=== PATIENT | female | born 1990 | race Caucasian/White ===

== ENCOUNTER → 2018-08-19 | Outpatient (CLI) | payer OTHER ==
[2018-08-19 13:47] VITALS: BMI 44.7
== END | disposition home or self-care (01) ==
LOC: MERGE 08-02 09:20 → MNTWWP 09:20
PROVIDERS: ATTEND Internal Medicine
DX: E66.01 Morbid (severe) obesity due to excess calories (principal); Z68.41 Body mass index [BMI] 40.0-44.9, adult
CPT/HCPCS: 97802

== ENCOUNTER → 2021-07-11 | Outpatient (CLI) | payer OTHER ==
[2021-07-11 13:38] LABS: Glucose 3 Hour, Gest 77 mg/dL
== END | disposition home or self-care (01) ==
LOC: EEVIPCON 08:30 → LABWHC1 09:01
PROVIDERS: ATTEND Obstetrics & Gynecology
DX: O99.810 Abnormal glucose complicating pregnancy (principal); Z3A.00 Weeks of gestation of pregnancy not specified
CPT/HCPCS: 36415; 82951; 82952

== ENCOUNTER 2022-08-17 15:26 | Inpatient (IN) | payer OTHER ==
[2022-08-17 16:07] LABS: Appearance,Urine Cloudy (Clear); Bacteria,Urine Rare /hpf; Bilirubin,Urine Negative (Negative); Blood,Urine Negative (Negative); Color,Urine Light Yellow; Glucose,Urine (UA) Negative (Negative); Hyaline Casts,Urine 1 /lpf (0-2); Ketones,Urine Negative (Negative); Leukocyte Esterase,Urine Negative (Negative); Nitrite,Urine Negative (Negative); PH, Urine 7.5 (5.0-8.0); Protein,Urine Trace (Negative); RBC,Urine <1 /hpf (0-5); Specific Gravity,Urine 1.011 (1.001-1.035); Squamous Epithelial Cell,Urine 20 /hpf (0-4); Urobilinogen,Urine <2.0 mg/dL (<2.0); WBC,Urine 1 /hpf (0-5)
[2022-08-17 16:09] LABS: Creatinine,Urine Random 57.6 mg/dL; Protein/Creatinine Ratio,Urine 0.26
[2022-08-17] MEDS ORDERED: hydrALAZINE HCL 20 MG/ML 1 ML VIAL IVP PRN (16:09)
[2022-08-17] MEDS ORDERED: LABETALOL 5 MG/ML VIAL MDV IVP PRN ×3 (16:09)
[2022-08-17] MEDS ORDERED: LACTATED RINGERS 1,000 ML IV SCH (16:30)
[2022-08-17] MEDS ORDERED: ceFAZolin 3 GM in SODIUM CHLORIDE 0.9% 100 ML IVPB ONE (17:00)
[2022-08-17] MEDS ORDERED: CITRIC ACID-SODIUM CITRATE 15 ML CUP PO ONE (17:00)
--- NOTE | 2022-08-17 17:05 | P.HPOB ---
History of Present Illness H&P Date: 08/17/22 Chief Complaint: pre-eclampsia 32 year old at 37 weeks 6 days presented to the office for a routine visit. BPP was 10 out of 10 and then her blood pressure was found to be elevated. She was sent to triage for preeclamptic labs. Blood pressures here have been up to 180s over 100s requiring labetalol IV push. She denies any signs and symptoms of preeclampsia but is diagnosed with preeclampsia. Patient had a previous section but wanted to . Her cervix is fingertipdilated but very thick and very high and posterior. her cervix was not favorable so she will require a repeat low transverse . She has signed tubal consents and her legal guardian who signed tubal consent so we will perform tubal ligation during the . Review of Systems All systems: negative Constitutional: Denies chills, Denies fever Eyes: denies blurred vision, denies pain Ears, nose, mouth and throat: Denies headache, Denies sore throat Cardiovascular: Denies chest pain, Denies shortness of breath Respiratory: Denies cough Gastrointestinal: Denies abdominal pain, Denies diarrhea, Denies nausea, Denies vomiting Genitourinary: Denies dysuria, Denies hematuria Musculoskeletal: Denies myalgias Integumentary: Denies pruritus, Denies rash Neurological: Denies numbness, Denies weakness Psychiatric: Denies anxiety, Denies depression Endocrine: Denies fatigue, Denies weight change Past Medical History Past Medical History: Neurologic Disorder (Traumatic Brain injury) History of Any Multi-Drug Resistant Organisms: None Reported Past Psychological History: No Psychological Hx Reported Smoking Status: Never smoker Medications and Allergies Home Medications Medication Instructions Recorded Confirmed Type No Known Home Medications 08/17/22 08/17/22 History Allergies Allergy/AdvReac Type Severity Reaction Status Date / Time No Known Allergies Allergy Verified 08/17/22 15:45 Exam Osteopathic Statement: *. No significant issues noted on an osteopathic structural exam other than those noted in the History and Physical/Consult. Intake and Output 08/17/22 08/17/22 08/17/22 06:59 14:59 22:59 Other: Weight 131.542 kg Heart: Regular rate and rhythm Lungs: Clear to auscultation bilaterally Abdomen: Soft, nontender Extremities: Negative Homans sign Results Abnormal Lab Results - Last 24 Hours (Table) 08/17/22 Range/Units 15:45 Urine Appearance Cloudy H (Clear) Urine Protein Trace H (Negative) Ur Squamous Epith Cells 20 H (0-4) /hpf Urine Bacteria Rare H (None) /hpf Assessment and Plan (1) Pre-eclampsia Current Visit: Yes Status: Acute Code(s): O14.90 - UNSPECIFIED PRE- ECLAMPSIA, UNSPECIFIED TRIMESTER SNOMED Code(s): 333139934 (2) 37 weeks gestation of Current Visit: Yes Status: Acute Code(s): Z3A.37 - 37 WEEKS GESTATION OF SNOMED Code(s): 60563868 (3) Traumatic brain injury Current Visit: Yes Status: Chronic Code(s): S06.9XAA - UNSPECIFIED INTCRN INJURY WITH LOC STATUS UNKNOWN, INIT SNOMED Code(s): 150090407 (4) Family planning Current Visit: Yes Status: Acute Code(s): Z30.09 - ENCOUNTER FOR OTH GENERAL CNSL AND ADVICE ON CONTRACEPTION SNOMED Code(s): 390807047 Plan: 1. repeat low transverse with tubal ligation
[2022-08-17 17:12] LABS: Basophils % (A) 0 %; Eosinophils # (A) 0.1 k/uL (0-0.7); Eosinophils % (A) 1 %; HCT 33.2 % (34.0-46.0); HGB 10.2 gm/dL (11.4-16.0); Hypochromasia Marked; Lymphocytes # (A) 2.3 k/uL (1.0-4.8); Lymphocytes % (A) 22 %; MCH 23.8 pg (25.0-35.0); MCHC 30.7 g/dL (31.0-37.0); MCV 77.4 fL (80.0-100.0); Mean Platelet Volume 7.1; Microcytosis Slight; Monocytes # (A) 0.4 k/uL (0-1.0); Monocytes % (A) 4 %; Neutrophils # (A) 7.4 k/uL (1.3-7.7); Neutrophils % (A) 70 %; Platelet Count 354 k/uL (150-450); RBC 4.28 m/uL (3.80-5.40); RDW 15.4 % (11.5-15.5); WBC 10.5 k/uL (3.8-10.6)
[2022-08-17 17:15] LABS: ALT 14 U/L (4-34); AST 18 U/L (14-36); African American GFR (CKD) >90 (>60 ml/min/1.73 sqM); Blood Urea Nitrogen 12 mg/dL (7-17); LDH 425 U/L (313-618); Non-African American GFR(CKD) >90 (>60 ml/min/1.73 sqM); Uric Acid 6.4 mg/dL (3.7-7.4)
[2022-08-17 17:32] LABS: INR 0.9 (<1.2); Prothrombin Time 9.7 sec (9.0-12.0)
[2022-08-17 17:33] LABS: Partial Thromboplastin Time 21.4 sec (22.0-30.0)
[2022-08-17] MEDS ORDERED: ONDANSETRON 4 MG/2 ML VIAL IVP PRN (18:14)
[2022-08-17] MEDS ORDERED: LANOLIN CREAM 5 GM TUBE TOPICAL PRN (18:14)
[2022-08-17] MEDS ORDERED: METOCLOPRAMIDE 5 MG/ML 2 ML VIAL IVP PRN (18:14)
[2022-08-17] MEDS ORDERED: diphenhydrAMINE 50 MG/ML 1 ML VIAL IVP PRN ×2 (18:14)
[2022-08-17] MEDS ORDERED: SIMETHICONE 80 MG CHEWABLE PO PRN (18:14)
[2022-08-17] MEDS ORDERED: ZOLPIDEM 5 MG TAB PO PRN (18:14)
[2022-08-17] MEDS ORDERED: diphenhydrAMINE 25 MG CAP PO PRN (18:14)
[2022-08-17] MEDS ORDERED: NALOXONE 0.4 MG/ML 1 ML VIAL IV PRN (18:14)
[2022-08-17] MEDS ORDERED: diphenhydrAMINE 50 MG CAP PO PRN (18:14)
[2022-08-17] MEDS ORDERED: OXYTOCIN 30 UNITS/500 ML NS 30 UNIT in SALINE 1 500ML.BAG IV SCH (18:15)
--- NOTE | 2022-08-17 18:19 | P.OP ---
Date of Procedure: 08/17/22 Preoperative Diagnosis: 1. at 37 weeks and 6 days 2. Pre-Eclampsia 3. Previous section with unfavorable cervix 4.family planning Postoperative Diagnosis: 1. Same Procedure(s) Performed: repeat low transverse with tubal ligation Anesthesia: spinal Surgeon: Yoanna Gaines Unitizer #1: Marcio Randall Estimated Blood Loss (ml): 400 IV fluids (ml): 800 Urine output (ml): 300 Pathology: other (placenta) Condition: stable Disposition: floor Operative Findings: viable female, Apgars 8, 9, weight 6 lbs. 11 oz. normal uterus, tubes, ovaries. Description of Procedure: Patient was taken to the operating room where spinal anesthesia was found be adequate. She was prepped and draped in normal sterile fashion in dorsal supine position with a leftward tilt. Pfannenstiel skin incision was made the scalpel and carried through to the underlying layer of fascia with the scalpel. Fascia was incised in midline and carried bilaterally with the Garibay scissors. The superior aspect of the fascial incision was grasped with [place] clamps elevated and the underlying rectus muscles dissected off with the Garibay's. Attention was then turned to inferior aspect of same incision which in a similar fashion was grasped tented up and the underlying rectus muscles dissected off with the Garibay's. The rectus muscles were the midline and the peritoneum was identified tented up and entered sharply with the scalpel. The incision was extended superiorly and inferiorly with good visualization of the bladder. The bladder blade was inserted and the vesicouterine peritoneum was incised the Metzenbaums then carried bilaterally and bladder flap created digitally. A low transverse incision was then made on the uterus with the scalpel. This was carried bilaterally and digital manner. 's head delivered atraumatically, nose and mouth bulb suctioned, cord clamped and cut, infant handed off to waiting nurses. Apgars 8,9, weight 6 lbs. 11 oz. Placenta delivered manually, intact with three-vessel cord. The uterus is exteriorized and cleared of all clots and debris. The uterine incision was closed with 0 Vicryl in a running locked fashion. Second layer of the same sutures used in imbricating fashion to obtain excellent hemostasis. Bladder flap was then reapproximated using 2-0 Vicryl in a running fashion. Both ovaries and tubes appeared normal. the left fallopian tube was grasped with hemostat and omentum was made in the mesosalpinx with the Bovie. This fallopian tube was doubly ligated segment was removed and pedicles were cauterized with the Bovie. The right fallopian tube was grasped with a hemostat and a window was made in the mesosalpinx with the Bovie. This fallopian tube was doubly ligated segment was removed and pedicles were cauterized with the Bovie. The uterus was placed back into the abdomen. The peritoneum was reapproximated using 2-0 Vicryl in a running fashion. The muscles were reapproximated using 2-0 Vicryl in interrupted fashion. The fascia was reapproximated using 0 Vicryl in a running fashion. The subcutaneous tissues closed with 3-0 Vicryl running fashion. The skin was closed jazzmine. Patient tolerated the procedure well, sponge and instrument counts were correct times 2 and she was taken to the recovery room in stable condition.
[2022-08-17] MEDS: LACTATED RINGERS 1,000 ML IV SCH (18:51)
[2022-08-17] MEDS: SENNOSIDES-DOCUSATE SODIUM 1 EACH TAB PO SCH (21:41)
[2022-08-17] MEDS: ACETAMINOPHEN TAB 500 MG TAB PO SCH (21:41)
[2022-08-18] MEDS: KETOROLAC 15 MG/ML 1 ML VIAL IVP SCH ×2 (01:57→07:48)
[2022-08-18] MEDS: ACETAMINOPHEN TAB 500 MG TAB PO SCH ×4 (04:11→21:19)
[2022-08-18] MEDS: IBUPROFEN 600 MG TAB PO SCH ×5 (05:29→23:58)
[2022-08-18] MEDS: LACTATED RINGERS 1,000 ML IV SCH ×2 (05:30→20:15)
[2022-08-18 07:00] LABS: Basophils % (A) 0 %; Eosinophils % (A) 0 %; HCT 29.9 % (34.0-46.0); HGB 9.3 gm/dL (11.4-16.0); Hypochromasia Marked; Lymphocytes # (A) 1.5 k/uL (1.0-4.8); Lymphocytes % (A) 9 %; MCH 24.5 pg (25.0-35.0); Mean Platelet Volume 6.9; Monocytes # (A) 0.8 k/uL (0-1.0); Monocytes % (A) 4 %; Neutrophils # (A) 14.8 k/uL (1.3-7.7); Neutrophils % (A) 86 %; Platelet Count 312 k/uL (150-450); RBC 3.78 m/uL (3.80-5.40); RDW 15.3 % (11.5-15.5); WBC 17.2 k/uL (3.8-10.6)
[2022-08-18] MEDS: SENNOSIDES-DOCUSATE SODIUM 1 EACH TAB PO SCH ×2 (07:48→20:16)
--- NOTE | 2022-08-18 08:06 | P.PN ---
Progress Note - Text 08/18/22 636am 32-year-old female status post with spinal Duramorph. Patient seen and evaluated for postop pain control patient has a VAS of 7 with no complains of nausea vomiting or pruritus.
--- NOTE | 2022-08-18 10:40 | P.PNOBGPC ---
Subjective - Subjective Principal diagnosis: Status post repeat low transverse with tubal ligation postop day Interval history: Patient seen and examined. Continues to deny any signs or symptoms of preeclampsia. Denies nausea, vomiting, chest pain, shortness of breath or any calf pain. Blood pressures were mostly 140s over 70s. Patient reports: Reports appetite normal, Reports voiding normally, Reports pain well controlled, Reports ambulating normally Objective - Vital Signs Latest vital signs: Vital Signs Temp Pulse Resp BP Pulse Ox 08/18/22 08:00 98.0 F 73 16 117/76 08/18/22 04:00 98.0 F 69 16 141/72 08/18/22 00:00 98.1 F 81 16 143/73 08/17/22 20:40 63 16 142/81 95 08/17/22 20:09 65 16 147/83 95 08/17/22 19:40 70 16 152/83 95 08/17/22 19:25 67 16 148/79 95 08/17/22 19:10 68 16 150/93 96 08/17/22 18:55 68 16 145/87 97 08/17/22 18:40 79 16 138/79 97 08/17/22 17:23 68 20 165/96 97 08/17/22 15:45 98.8 F 81 20 183/99 98 Intake and Output 08/17/22 08/18/22 08/18/22 22:59 06:59 14:59 Output Total 1013 2000 Balance -1013 -2000 Output: Urine 400 2000 Output, Quantitative 613 Blood Loss Other: Voiding Method Indwelling Catheter # Voids 1 Weight 131.542 kg - Exam Lungs: bilateral: normal Chest: Normal S1, Normal S2 Extremities: Present: normal Abdomen: Present: normal appearance, soft. Absent: distention, tenderness Incision: Present: normal, dry, intact Uterus: Present: normal, firm - Labs Labs: Abnormal Lab Results - Last 24 Hours (Table) 08/17/22 08/17/22 08/17/22 Range/Units 15:45 16:38 16:38 WBC (3.8-10.6) k/uL RBC (3.80-5.40) m/uL Hgb 10.2 L (11.4-16.0) gm/dL Hct 33.2 L (34.0-46.0) % MCV 77.4 L (80.0-100.0) fL MCH 23.8 L (25.0-35.0) pg MCHC 30.7 L (31.0-37.0) g/dL Neutrophils # (1.3-7.7) k/uL APTT 21.4 L (22.0-30.0) sec Fibrinogen 509 H (200-500) mg/dL Urine Appearance Cloudy H (Clear) Urine Protein Trace H (Negative) Ur Squamous Epith Cells 20 H (0-4) /hpf Urine Bacteria Rare H (None) /hpf 08/18/22 Range/Units 06:05 WBC 17.2 H (3.8-10.6) k/uL RBC 3.78 L (3.80-5.40) m/uL Hgb 9.3 L (11.4-16.0) gm/dL Hct 29.9 L (34.0-46.0) % MCV 79.0 L (80.0-100.0) fL MCH 24.5 L (25.0-35.0) pg MCHC (31.0-37.0) g/dL Neutrophils # 14.8 H (1.3-7.7) k/uL APTT (22.0-30.0) sec Fibrinogen (200-500) mg/dL Urine Appearance (Clear) Urine Protein (Negative) Ur Squamous Epith Cells (0-4) /hpf Urine Bacteria (None) /hpf Assessment and Plan (1) Pre-eclampsia Current Visit: Yes Status: Acute Code(s): O14.90 - UNSPECIFIED PRE- ECLAMPSIA, UNSPECIFIED TRIMESTER SNOMED Code(s): 093945035 (2) 37 weeks gestation of Current Visit: Yes Status: Resolved Code(s): Z3A.37 - 37 WEEKS GESTATION OF SNOMED Code(s): 79488419 (3) Traumatic brain injury Current Visit: Yes Status: Chronic Code(s): S06.9XAA - UNSPECIFIED INTCRN INJURY WITH LOC STATUS UNKNOWN, INIT SNOMED Code(s): 515294023 (4) Family planning Current Visit: Yes Status: Resolved Code(s): Z30.09 - ENCOUNTER FOR OTH GENERAL CNSL AND ADVICE ON CONTRACEPTION SNOMED Code(s): 005326202 (5) Status post repeat low transverse section Current Visit: Yes Status: Acute Code(s): Z98.891 - HISTORY OF UTERINE SCAR FROM PREVIOUS SURGERY SNOMED Code(s): 149459834 Plan: 1. Continue postoperative care. 2. Monitor blood pressure closely
[2022-08-18] MEDS ORDERED: MORPHINE SULFATE (PF) 0.3 MG/0.3 ML SYR ONE (17:37)
[2022-08-18] MEDS ORDERED: diphenhydrAMINE 50 MG/ML 1 ML VIAL ONE (17:37)
[2022-08-18] MEDS ORDERED: KETOROLAC 15 MG/ML 1 ML VIAL ONE (17:37)
[2022-08-18] MEDS ORDERED: DEXAMETHASONE SOD PHOS (MDV) 100 MG/10 ML VIAL ONE (17:37)
[2022-08-18] MEDS ORDERED: NALBUPHINE 10 MG/ML (1 ML AMP) ONE (17:37)
[2022-08-18] MEDS ORDERED: ONDANSETRON 4 MG/2 ML VIAL ONE (17:37)
[2022-08-18] MEDS ORDERED: OXYTOCIN 30 UNITS/500 ML NS BAG IV ONE (17:37)
[2022-08-19] MEDS: ACETAMINOPHEN TAB 500 MG TAB PO SCH ×4 (02:54→21:01)
[2022-08-19] MEDS: IBUPROFEN 600 MG TAB PO SCH ×3 (05:50→18:18)
[2022-08-19] MEDS: SENNOSIDES-DOCUSATE SODIUM 1 EACH TAB PO SCH ×2 (07:39→20:06)
--- NOTE | 2022-08-19 13:28 | P.PNOBGPC ---
Subjective - Subjective Principal diagnosis: Status post section postoperative day #2 Interval history: Patient is doing well. She is trying to pump her breast milk. Lochia has been decreasing. Her pain is well-controlled. She is passing flatus and bowel movement. Patient reports: Reports appetite normal, Reports voiding normally, Reports pain well controlled, Reports ambulating normally [place]: other (In level I nursery) Objective - Vital Signs Latest vital signs: Vital Signs Temp Pulse Resp BP Pulse Ox 08/19/22 07:36 74 16 08/19/22 07:35 97.5 F L 74 16 143/87 97 08/18/22 23:33 97.8 F 71 16 127/73 98 08/18/22 16:00 98.2 F 76 16 123/67 98 Intake and Output 08/18/22 08/19/22 08/19/22 22:59 06:59 14:59 Other: Voiding Method Toilet Indwelling Catheter # Voids 2 1 1 Assessment and Plan Assessment: Status post repeat section postoperative day #2 Plan: Continue with postoperative and care. Patient would like to stay is long as she can with baby.
[2022-08-20] MEDS: IBUPROFEN 600 MG TAB PO SCH ×4 (00:01→18:19)
[2022-08-20] MEDS: ACETAMINOPHEN TAB 500 MG TAB PO SCH ×4 (03:14→21:11)
--- NOTE | 2022-08-20 05:34 | P.PNOBGPC ---
Subjective - Subjective Principal diagnosis: Status post repeat postoperative day #3 Interval history: Patient is doing well. She is passing flatus and bowel movement. She is urinating without difficulty. Her pain is improving. Patient reports: Reports appetite normal, Reports voiding normally, Reports pain well controlled, Reports ambulating normally [place]: other (In level I nursery) Objective - Vital Signs Latest vital signs: Vital Signs Temp Pulse Resp BP Pulse Ox 08/20/22 00:00 97.5 F L 75 18 131/80 98 08/19/22 16:00 97.9 F 90 16 126/72 98 08/19/22 07:36 74 16 08/19/22 07:35 97.5 F L 74 16 143/87 97 Intake and Output 08/19/22 08/19/22 08/20/22 14:59 22:59 06:59 Other: Voiding Method Toilet Toilet Indwelling Catheter Indwelling Catheter # Voids 1 1 1 - Exam Extremities: Present: normal Abdomen: Present: normal appearance, soft. Absent: distention, tenderness Incision: Present: normal, dry, intact. Absent: erythematous Uterus: Present: normal, firm. Absent: tenderness Assessment and Plan Assessment: Status post repeat section postoperative day #3 Plan: Continue and postoperative care today. Anticipate discharge home tomorrow.
[2022-08-20 09:07] VITALS: RESP 16
[2022-08-20] MEDS: SENNOSIDES-DOCUSATE SODIUM 1 EACH TAB PO SCH ×2 (09:07→21:10)
[2022-08-21] MEDS: IBUPROFEN 600 MG TAB PO SCH ×3 (00:20→15:51)
[2022-08-21] MEDS: ACETAMINOPHEN TAB 500 MG TAB PO SCH ×2 (03:12→11:25)
[2022-08-21] MEDS: SENNOSIDES-DOCUSATE SODIUM 1 EACH TAB PO SCH (09:59)
--- NOTE | 2022-08-21 12:47 | P.DS ---
Providers Date of admission: 08/17/22 16:57 Expected date of discharge: 08/21/22 Attending physician: Yoanna Gaines Primary care physician: Stated None - Discharge Diagnosis(es) (1) Pre-eclampsia Current Visit: Yes Status: Acute (2) 37 weeks gestation of Current Visit: Yes Status: Resolved (3) Traumatic brain injury Current Visit: Yes Status: Chronic (4) Family planning Current Visit: Yes Status: Resolved (5) Status post repeat low transverse section Current Visit: Yes Status: Acute Hospital Course: Patient presented to my office with elevated blood pressures. She was diagnosed with preeclampsia and a repeat low transverse with tubal ligation was performed. Postoperatively her course has been uncomplicated. She has had a couple elevated blood pressures but most of them have been normal. Her incision is clean, dry, intact with jazzmine. She'll be discharged home postoperative day #4 in stable condition to follow-up with me in one week. Plan - Discharge Summary New Discharge Prescriptions: New oxyCODONE HCL [OxyIR] 5 mg PO Q4HR PRN #18 tab PRN Reason: Pain Scale 4 - 6 Ibuprofen [Motrin] 600 mg PO Q6H #30 tab Discharge Medication List Ibuprofen [Motrin] 600 mg PO Q6H #30 tab 08/21/22 [Rx] oxyCODONE HCL [OxyIR] 5 mg PO Q4HR PRN #18 tab 08/21/22 [Rx] Follow up Appointment(s)/Referral(s): Yoanna Gaines DO [Doctor of Osteopathic Medicine] - 09/26/22 10:45 am (Post Op Appointment 08-25-2022 at 1:30) Discharge Disposition: HOME SELF-CARE
[2022-08-21 15:57] VITALS: BP 146/88; PULSE 62; TEMP 97.6
== END 2022-08-21 18:10 | disposition home or self-care (01) | DRG 785 ==
LOC: FBPOP 15:26 → 4FBP 16:57
PROVIDERS: ADMIT Obstetrics & Gynecology; ATTEND Obstetrics & Gynecology
PROC: 0UB70ZZ Excision of Bilateral Fallopian Tubes, Open Approach (ICD-10-PCS; 2022-08-17)
PROC: 4A0HXCZ Measurement of Products of Conception, Cardiac Rate, External Approach (ICD-10-PCS; 2022-08-17)
PROC: 10D00Z1 Extraction of Products of Conception, Low, Open Approach (ICD-10-PCS; principal; 2022-08-17 17:30)
DX: O34.211 Maternal care for low transverse scar from previous cesarean delivery (principal); O14.94 Unspecified pre-eclampsia, complicating childbirth; Z30.2 Encounter for sterilization; Z37.0 Single live birth; Z3A.37 37 weeks gestation of pregnancy; Z87.820 Personal history of traumatic brain injury
CPT/HCPCS: 36415; 59025; 81001; 82565; 82570; 83615; 84156; 84450; 84460; 84520; 84550; 85025; 85384; 85610; 85730; 86850; 86900; 86901; 96374